=== PATIENT | female | born 2000 | race Caucasian/White ===

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

== ENCOUNTER → 2018-05-12 | Outpatient (CLI) | payer BC ==
--- NOTE | 2018-05-12 16:23 | KCIC ---
Indication: Nodular soft tissue in the pubic region TECHNIQUE: Grayscale and color Doppler images of the anterior pubic region soft tissue. COMPARISON: None FINDINGS: There is a 1.1 x 1.7 x 0.5 cm hypoechoic nodule with indistinct margins in the left anterior pubic region without internal vascularity and no sinus tract to the skin. The overlying skin is within normal limits. IMPRESSION: Subcutaneous soft tissue nodule in the left anterior pubic region, indeterminate. Differential diagnoses includes complicated Bartholin's gland cyst, complex sebaceous cyst although no clear sinus tract is seen to the skin, hematoma, lipoma. Further evaluation with MRI of the pelvis with IV contrast may be of additional benefit. Electronically signed by: Lane Argueta DO (05/12/2018 4:20 PM) [id number]
== END | disposition home or self-care (01) ==
LOC: KCIC US 15:32
PROVIDERS: ATTEND Nurse Practitioner Family
DX: N75.0 Cyst of Bartholin's gland (principal); L72.3 Sebaceous cyst
CPT/HCPCS: 76857